=== PATIENT | male | born 1970 | race Caucasian/White ===

== ENCOUNTER 2018-09-27 14:46 | Emergency (ER) | payer SELFPAY ==
[~2018-09-27] VITALS: Wt 90.8 kg
[2018-09-27 15:29] VITALS: BP 130/77; PULSE 98; RESP 20
== END 2018-09-27 18:35 | disposition left against medical advice (07) ==
LOC: FTE 14:46
DX: Z53.21 Procedure and treatment not carried out due to patient leaving prior to being seen by health care provider (principal)

== ENCOUNTER 2018-10-02 11:15 | Emergency (ER) | payer OTHER ==
[~2018-10-02] VITALS: Ht 170.2 cm; Wt 91.8 kg
[2018-10-02 11:41] VITALS: RESP 18; Ht 170.2 cm; Wt 91.8 kg
[2018-10-02] MEDS ORDERED: KETOROLAC 30 MG INJ IM STA (12:47)
[2018-10-02] MEDS ORDERED: CEPH500C PO (15:05)
[2018-10-02] MEDS ORDERED: SULF1TAB31 PO (15:05)
--- NOTE | 2018-10-02 15:06 | ERD ---
ER Documentation Chief Complaint Chief Complaint bilat leg pain. wounds to the lower leg x 1 month ROS All systems reviewed and are negative except as per history of present illness. Medications Home Meds Active Scripts Sulfamethoxazole/Trimethoprim* (Bactrim Ds* Tablet) 1 Each Tablet, 1 TAB PO BID for cellulitis for 7 Days, #14 TAB Prov:ZEE HARDY DO 10/02/18 Cephalexin* (Cephalexin*) 500 Mg Capsule, 500 MG PO Q8 for cellulitis for 7 Days, #21 CAP Prov:ZEE HARDY DO 10/02/18 Allergies Allergies: Coded Allergies: No Known Allergy (Unverified , 09/27/18) Physical Exam Vitals Vital Signs Date Temp Pulse Resp B/P (MAP) Pulse Ox O2 O2 Flow FiO2 Time Delivery Rate 10/02/18 97.9 93 18 132/72 99 11:41 (92) Physical Exam Const: No acute distress Head: Atraumatic Eyes: Normal Conjunctiva ENT: Normal External Ears, Nose and Mouth. Neck: Full range of motion. No meningismus. Resp: Clear to auscultation bilaterally Cardio: Regular rate and rhythm, no murmurs Abd: Soft, non tender, non distended. Normal bowel sounds Skin: No petechiae or rashes Back: No midline or flank tenderness Ext: No cyanosis, or edema Neur: Awake and alert Psych: Normal Mood and Affect Results 24 hrs Current Medications Medications Dose Sig/Paulino Start Time Status Last (Trade) Ordered Route PRN Stop Time Admin Dose Reason Admin Ketorolac 30 mg ONCE STAT 10/02/18 DC 10/02/18 Tromethamine IM 12:47 13:04 (Toradol) 10/02/18 12:48 Departure Diagnosis: Primary Impression: Cellulitis Site of cellulitis: extremity Site of cellulitis of extremity: lower extremity Laterality: unspecified laterality Qualified Codes: L03.119 - Cellulitis of unspecified part of limb Condition: Fair Patient Instructions: Cellulitis Referrals: [facility] YOU HAVE RECEIVED A MEDICAL SCREENING EXAM AND THE RESULTS INDICATE THAT YOU DO NOT HAVE A CONDITION THAT REQUIRES URGENT TREATMENT IN THE EMERGENCY DEPARTMENT. FURTHER EVALUATION AND TREATMENT OF YOUR CONDITION CAN WAIT UNTIL YOU ARE SEEN IN YOUR DOCTORS OFFICE WITHIN THE NEXT 1-2 DAYS. IT IS YOUR RESPONSIBILITY TO MAKE AN APPOINTMENT FOR FOLOW-UP CARE. IF YOU HAVE A PRIMARY DOCTOR --you should call your primary doctor and schedule an appointment IF YOU DO NOT HAVE A PRIMARY DOCTOR YOU CAN CALL OUR PHYSICIAN REFERRAL HOTLINE AT IF YOU CAN NOT AFFORD TO SEE A PHYSICIAN YOU CAN CHOSE FROM THE FOLLOWING [facility] [address] [facility] [address] [facility] [facility] [address] [facility] [address] [facility] [phone] [id number] [facility]. [facility]. [address] Additional Instructions: Llame al doctor MAANA y enedelia zahraa MYKEL PARA DENTRO DE 1-2 [place]ILL[place].Dgale a la secretaria que nosotros le instruimos hacer esta mykel.Avise o llame si turpin condi angus se empeora antes de la mykel. Regresa aqui si peor o no mejor. ZEE HARDY DO Oct 02, 2018 15:06
[2018-10-02 15:43] VITALS: BP 148/83; PULSE 93
== END 2018-10-02 15:45 | disposition home or self-care (01) ==
LOC: FTE 11:15
DX: L03.119 Cellulitis of unspecified part of limb (principal)
CPT/HCPCS: 93970; 96372; J1885; Z7502